=== PATIENT | male | born 1995 | race Asian ===

== ENCOUNTER 2017-09-13 22:01 | Emergency (ER) | payer OTHER ==
[~2017-09-13] VITALS: Ht 172.7 cm; Wt 69.0 kg
[2017-09-13 22:12] VITALS: BP 134/86; PULSE 92; TEMP 36.6; O2SAT 94; Ht 172.7 cm; Wt 69.0 kg
--- NOTE | 2017-09-13 23:01 | DIAGNOSTIC IMAGING REPORT ---
R WRIST MIN 3 VIEWS ROUTINE CLINICAL HISTORY: Right wrist pain COMPARISON: None. DISCUSSION: No fractures or dislocations are visualized. IMPRESSION: No fractures identified. Electronically signed by: Fili Murphy M.D. 09/13/2017 11:00 PM Dictated Date/Time: 09/13/2017 10:59 PM
--- NOTE | 2017-09-14 00:38 | EMERGENCY ROOM VISIT NOTE ---
History Report prepared by Mayra: Clifton Dunn Under the Supervision of: Dr. Kwesi Hunter M.D. First contact with patient: 22:23 Chief Complaint: WRIST PAIN Stated Complaint: INJURED WRIST History of Present Illness The patient is a 22 year old male who presents to the Emergency Room with complaints of persistent right wrist pain that started a couple months ago. He states that the pain first started when he was working out. The patient says that he was doing hammer curls with a 40 pound dumbbell. He notes that when he was at 90 degrees, he felt this sudden pain in his right wrist. The patient adds that he was doing a lot of wrist workouts before doing the hammer curls. He notes that that he has been able to carry items under 10 pounds without an issue with the wrist, but yesterday he tried to go to the gym again and the pain worsened. This was the second time he tried working out after the injury. The patient says that he has not seen orthopedics for this. He adds that he had numbness and tingling in his fingertips initially when the injury first happened , but that has went away. He notes no chronic medical problems. Source of History: patient Onset: A couple months ago Position: wrist (right) Quality: other (pain) Timing: other (persistent) Modifying Factors (Worsening): other (lifting heavy objects with wrist) Associated Symptoms: No numbness (or tingling in fingertips but had initially) Note: No other associated symptoms noted. Review of Systems See HPI for pertinent positives & negatives. A total of 4 systems reviewed and were otherwise negative. Past Medical & Surgical Medical Problems: (1) No chronic diseases present Family History No pertinent family history Social History Smoking Status: Never Smoker Drug Use: none Housing Status: lives with roommate Occupation Status: student Current/Historical Medications No Active Prescriptions or Reported Meds Allergies Coded Allergies: No Known Allergies (Unverified , 09/13/17) Physical Exam Vital Signs Date Time Temp Pulse Resp B/P (MAP) Pulse Ox O2 Delivery O2 Flow Rate FiO2 09/13/17 22:12 36.6 92 20 134/86 94 Room Air Physical Exam Constitutional: Vital signs reviewed. Musculoskeletal: No bony tenderness, swelling or deformity to the right wrist or hand. He has pain with flexion of the palm over the ulnar aspect posteriorly. Integumentary: No ecchymosis or cellulitis. Neurological: The patient is awake and alert. No focal deficits. Motor and sensation are intact in the right wrist. Psychiatric: Normal affect. Medical Decision & Procedures ER Provider Diagnostic Interpretation: X-ray results as stated below per interpretation by me and the radiologist: R WRIST MIN 3 VIEWS ROUTINE CLINICAL HISTORY: Right wrist pain COMPARISON: None. DISCUSSION: No fractures or dislocations are visualized. IMPRESSION: No fractures identified. Electronically signed by: Fili Murphy M.D. 09/13/2017 11:00 PM Dictated Date/Time: 09/13/2017 10:59 PM ED Course 2224: The patient was evaluated in room B10. A complete history and physical exam was performed. 2306: Upon reevaluation, the patient appeared to be resting comfortably. I discussed tonight's findings with him. He verbalized agreement of the treatment plan. He was discharged home. Medical Decision This is a 23-year-old male presents with wrist pain. Differential diagnosis includes strain, tendinitis, avulsion fracture. I did perform a limited focused review of portions of the patient's old chart on the electronic medical record. The patient has had no prior visits. I did evaluate the patient as noted above. I did order and personally review the patient's right wrist x-rays as described above. There is no evidence of any acute findings. I did discuss the test results with the patient. He was placed in a wrist lacer and advised to follow-up with orthopedics. He was discharged in good condition. Medication Reconcilliation Current Medication List: was personally reviewed by me Blood Pressure Screening Patient's blood pressure: Elevated blood pressure Blood pressure disposition: Elevated BP felt to be situational Impression Primary Impression: Wrist pain, right Scribe Attestation The scribe's documentation has been prepared under my direct and personally reviewed by me in its entirety. I confirm that the note above accurately reflects all work, treatment, procedures, and medical decision making performed by me. Departure Information Dispostion Home / Self-Care Prescriptions No Active Prescriptions or Reported Meds Referrals No Doctor, Assigned (PCP) Reymundo Orozco M.D. [facility] Patient Instructions My [facility] Additional Instructions You have been examined and treated today on an emergency basis only. This is not a substitute for, or an effort to provide, complete comprehensive medical care. It is impossible to recognize and treat all injuries or illnesses in a single emergency department visit. It is therefore important that you follow up closely with [facility] or Dr. Orozco of orthopedics. Call as soon as possible for an appointment. Return for worsening symptoms or if you develop fever, wrist swelling or any other concerning symptoms. Avoid any heavy lifting with your right arm.
== END 2017-09-13 23:27 | disposition home or self-care (01) ==
LOC: C.EDB 22:02
DX: M25.531 Pain in right wrist (principal); X50.0XXD Overexertion from strenuous movement or load, subsequent encounter